=== PATIENT | female | born 1985 | race Caucasian/White ===

== ENCOUNTER → 2017-07-06 | Outpatient (CLI) | payer OTHER ==
[~2017-07-06] MED LIST: AZEL0.15 NAE; BCPILLS PO; FLNIN NAE; TRAM-453 PO; TYLOTC500 PO
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
== END | disposition home or self-care (01) ==
LOC: C.RAD 13:26
PROVIDERS: ATTEND Nurse Practitioner
DX: M54.2 Cervicalgia (principal); J34.89 Other specified disorders of nose and nasal sinuses; V89.2XXA Person injured in unspecified motor-vehicle accident, traffic, initial encounter

== ENCOUNTER → 2017-09-18 | Outpatient (CLI) | payer OTHER | END | disposition home or self-care (01) | LOC: C.LABBFT 13:07 | PROVIDERS: ATTEND Physician Assistant Medical | DX: R31.29 Other microscopic hematuria (principal) ==